=== PATIENT | male | born 1995 | race Caucasian/White ===

== ENCOUNTER 2018-12-03 14:43 | Emergency (ER) | payer OTHER ==
[~2018-12-03] VITALS: Ht 175.3 cm; Wt 68.0 kg
[2018-12-03] MEDS ORDERED: NORCO 5-325 TA1 EAC1 PO (17:23)
[2018-12-03] MEDS ORDERED: KEFLEX500 M1 PO (17:23)
[2018-12-03] MEDS ORDERED: DOXYCYCLINE 10100 MG PO (17:32)
[2018-12-03 17:58] VITALS: BP 118/74
== END 2018-12-03 17:59 | disposition home or self-care (01) ==
LOC: ER 14:43
DX: T25.632A Corrosion of second degree of left toe(s) (nail), initial encounter (principal); T25.631A Corrosion of second degree of right toe(s) (nail), initial encounter; T32.0 Corrosions involving less than 10% of body surface; F17.210 Nicotine dependence, cigarettes, uncomplicated; Y93.89 Activity, other specified; Y92.89 Other specified places as the place of occurrence of the external cause; Y99.0 Civilian activity done for income or pay

== ENCOUNTER → 2018-12-28 | Outpatient (CLI) | payer OTHER ==
[~2018-12-28] MED LIST: DOXYCYCLINE 10100 MG PO; KEFLEX500 M1 PO; NORCO 5-325 TA1 EAC1 PO
== END ==
LOC: HYPER 10:00
DX: T25.322D Burn of third degree of left foot, subsequent encounter (principal); T25.321D Burn of third degree of right foot, subsequent encounter; F17.200 Nicotine dependence, unspecified, uncomplicated; X08.8XXD Exposure to other specified smoke, fire and flames, subsequent encounter

== ENCOUNTER → 2019-01-18 | Outpatient (CLI) | payer OTHER | LOC: HYPER 09:35 | DX: T65.891D Toxic effect of other specified substances, accidental (unintentional), subsequent encounter (principal); T25.722 Corrosion of third degree of left foot; T24.231D Burn of second degree of right lower leg, subsequent encounter; T24.232D Burn of second degree of left lower leg, subsequent encounter; T32.0 Corrosions involving less than 10% of body surface; F17.200 Nicotine dependence, unspecified, uncomplicated ==

== ENCOUNTER → 2019-02-20 | Outpatient (CLI) | payer OTHER | LOC: HYPER 07:51 | DX: T24.301D Burn of third degree of unspecified site of right lower limb, except ankle and foot, subsequent encounter (principal); F17.200 Nicotine dependence, unspecified, uncomplicated; T31.0 Burns involving less than 10% of body surface; T79.9XXD Unspecified early complication of trauma, subsequent encounter; X08.8XXD Exposure to other specified smoke, fire and flames, subsequent encounter ==